=== PATIENT | female | born 1970 | race Caucasian/White ===

== ENCOUNTER → 2018-03-18 | Outpatient (CLI) | payer OTHER ==
[~2018-03-18] MED LIST: ADULT LOW DOSE81 MG PO; ALAVERT10 MG PO; ALPRAZOLAM 0.0.25 M1 PO; ASPIRIN EC81 M1 PO; CALCIUM 500 +1 EAC5 PO; CARAFATE 1 GM TA1 G1 PO; DEPO-PROVER150 MG/M1 IM; LANTUS SUBQ; LEVEMIR SUBQ; LEVOXYL25 MCG PO; LISINOPRIL20 MG PO; NASONEX17 GM NASAL; NOVOLOG100 UNIT/1 SUBQ; PROAIR HFA8.5 GM INH; PROTONIX40 M2 PO; PROZAC 20 MG20 MG PO; SINGULAIR 10 MG10 M1 PO; SYNTHROID100 MCG PO
== END ==
LOC: RAD 14:30
DX: Z12.31 Encounter for screening mammogram for malignant neoplasm of breast (principal)

== ENCOUNTER → 2021-05-13 | Outpatient (CLI) | payer BC | LOC: BC 10:27 | PROVIDERS: ATTEND Nurse Practitioner | DX: Z12.31 Encounter for screening mammogram for malignant neoplasm of breast (principal); N64.89 Other specified disorders of breast ==